=== PATIENT | female | born 1990 | race Caucasian/White ===

== ENCOUNTER 2023-01-03 21:23 | Emergency (ER) | payer BC ==
[2023-01-03 23:47] LABS: HIV (1/2) Antibody/Antigen Non-Reactive (NonReactive); HIV 1/2 INDEX 0.34 S/CO (<1.00)
[2023-01-04 12:45] LABS: Hep C IgG Ab Non-Reactive (NonReactive); Hep C Index 0.13 S/CO (0-0.79)
[2023-01-04 12:51] LABS: HBSAB Concentration 670.25 mIU/mL; Hep B Surf AB Reactive (NonReactive)
== END 2023-01-03 22:08 | disposition home or self-care (01) ==
LOC: CSHERS 21:23
DX: Z77.21 Contact with and (suspected) exposure to potentially hazardous body fluids (principal)
CPT/HCPCS: 36415; 99283

== ENCOUNTER 2023-05-14 11:59 | Outpatient (CLI) | payer BC | END 2023-05-14 12:00 | disposition home or self-care (01) | LOC: CSHRAD 11:59 | PROVIDERS: ATTEND Internal Medicine Rheumatology | DX: M54.50 Low back pain, unspecified (principal) | CPT/HCPCS: 72100 ==

== ENCOUNTER 2023-08-08 15:14 | Outpatient (CLI) | payer BC | END 2023-08-08 15:15 | disposition home or self-care (01) | LOC: CSHCT 15:14 | PROVIDERS: ATTEND Neurological Surgery | DX: M54.50 Low back pain, unspecified (principal); M47.816 Spondylosis without myelopathy or radiculopathy, lumbar region | CPT/HCPCS: 72131 ==

== ENCOUNTER 2024-10-19 10:29 | Outpatient (CLI) | payer BC | END 2024-10-19 10:30 | disposition home or self-care (01) | LOC: CSHRAD 10:29 | PROVIDERS: ATTEND Student in an Organized Health Care Education/Training Program | DX: M54.2 Cervicalgia (principal); M54.50 Low back pain, unspecified; M25.60 Stiffness of unspecified joint, not elsewhere classified; I73.00 Raynaud's syndrome without gangrene; M19.90 Unspecified osteoarthritis, unspecified site | CPT/HCPCS: 72081; 72202 ==

== ENCOUNTER 2024-10-27 12:52 | Outpatient (CLI) | payer BC | END 2024-10-27 12:53 | disposition home or self-care (01) | LOC: CSHRAD 12:52 | PROVIDERS: ATTEND Student in an Organized Health Care Education/Training Program | DX: M54.2 Cervicalgia (principal); G89.29 Other chronic pain; M47.812 Spondylosis without myelopathy or radiculopathy, cervical region | CPT/HCPCS: 72040 ==